=== PATIENT | male | born 1980 | race Caucasian/White ===

== ENCOUNTER 2020-10-12 15:59 | Emergency (ER) | payer SELFPAY ==
[~2020-10-12] VITALS: Ht 165.1 cm; Wt 72.7 kg
[2020-10-12 17:14] LABS: APPEARANCE,URINE CLEAR (CLEAR); BILIRUBIN,URINE NEGATIVE (NEGATIVE); GLUCOSE, URINE (UA) NEGATIVE (NEGATIVE); KETONES,URINE 15 mg/dL (NEGATIVE); LEUKOCYTE ESTERASE ,URINE TRACE (NEGATIVE); NITRATE,URINE NEGATIVE (NEGATIVE); OCCULT BLOOD,URINE NEGATIVE (NEGATIVE); PH,URINE 5.5 (5.0-8.0); PROTEIN,URINE NEGATIVE (NEGATIVE); UROBILINOGEN,URINE 0.2 mg/dL (<=1.0)
[2020-10-12 17:31] LABS: BACTERIA,URINE None Seen /HPF (None Seen); RBC,URINE None Seen /HPF (0-2); SQUAMOUS EPITHELIAL CELL,UR None Seen /LPF (None Seen); WBC,URINE 0-2 /HPF (0-5)
[2020-10-12 18:26] VITALS: BP 127/83
[2020-10-12] MEDS ORDERED: AZITHROMYCIN 500 MG TABLET PO ONE (18:45)
[2020-10-12] MEDS ORDERED: CefTRIAXone SODIUM 1 GM/VIAL IM ONE (18:45)
[2020-10-12] MEDS ORDERED: LIDOCAINE/PF 1% 2 ML VIAL IM ONE (18:45)
== END 2020-10-12 19:07 | disposition home or self-care (01) ==
LOC: EMS 15:59
DX: R30.0 Dysuria (principal); N50.811 Right testicular pain; F17.210 Nicotine dependence, cigarettes, uncomplicated; F19.90 Other psychoactive substance use, unspecified, uncomplicated
CPT/HCPCS: 76870; 81001; 96372; 99284; A9575; J0696; J3490